=== PATIENT | male | born 1950 | race Caucasian/White ===

== ENCOUNTER 2023-11-15 09:54 | Emergency (ER) | payer MEDICARE, OTHER, SELFPAY ==
[2023-11-15 09:57] VITALS: BP 162/88
[2023-11-15 11:25] VITALS: BMI 23.1
--- NOTE | 2023-11-15 12:20 | ED.GENMED ---
History of Present Illness
<Lou Franklin PA-C - Last Filed: 11/16/23 17:09>
General
Chief Complaint: Fatigue
Source: patient
Exam Limitations: none
Time Seen by Provider: 11/15/23 11:43
Nursing documentation reviewed up to this point in time: agreed with
History of Present Illness
History of Present Illness:
Patient is a 73-year-old male presenting for evaluation of persistent fatigue over the past few days s/p fall about 9 days ago. 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
fall approximately 9 feet to the ground landing on his feet. He does state that he scraped/received him back to the left side of his body on the scaffolding on the way down. Patient denies any head strike or loss of consciousness. Fall was
unwitnessed. Patient was able to walk away from the fall and go home. He never sought medical attention at that time.
His was out of town at the time of the fall when she returned states that he seemed extremely fatigued. She also noticed some intermittent slurred speech and was concerned that it may be an impending stroke. She was concerned regarding the
extensive bruising to his left flank and left arm. She insisted that he come to the emergency department for evaluation.
Patient denies any headache, neck pain, back pain, nausea, vomiting, or visual changes. Patient denies any chest pain, shortness of breath, or abdominal pain. Patient has been ambulating without difficulty since the accident.
Patient does take a baby aspirin and Plavix daily. 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
Past History
<Lou Franklin PA-C - Last Filed: 11/16/23 17:09>
Past History
ED Past Medical History: CHF, COPD, CVA, GERD, HTN, Hypercholesterolemia, NIDDM and Valvular disease (Moderate aortic stenosis)
ED Past Surgical History: Orthopedic (Pelvic fracture)
Social History
Tobacco: Smoker (Quit smoking after most recent hospitalization August 13, 2020)
Alcohol: None
Drug: None
Personal:
Living: with family
Employment: Other
Family History
Family History: Other (Noncontributory)
Review of Systems
<Lou Franklin PA-C - Last Filed: 11/16/23 17:09>
Review of Systems
Allergies reviewed?: Yes
All Other Systems: ROS reviewed and negative except as documented in HPI and ROS
Phy Exam
<Lou Franklin PA-C - Last Filed: 11/16/23 17:09>
Physical Exam
Physical Exam:
Vitals: GCS 15. Hypertensive, otherwise vital signs stable. Afebrile
General: Patient is well appearing, no acute distress
Skin: Significant ecchymoses of left flank and left upper extremity.
Head: Normocephalic, atraumatic
Eyes: Sclera nonicteric. EOMs intact. No nystagmus. No evidence of orbital trauma
Throat: Protecting airway. Posterior pharynx clear
Neck: Normal ROM, no cervical spine tenderness, no meningismus
Cardiac: Regular rate and rhythm, no murmurs. No anterior chest wall tenderness.
Pulm: Normal respiratory effort. Clear breath sounds bilaterally. Tenderness to left lateral ribs. No crepitus.
Abdomen: Abdomen soft. Mild abdominal tenderness in left upper quadrant without rebound tenderness or guarding. Mild ecchymoses noted to left upper abdomen/flank area. No CVA tenderness.
Back: No cervical spine tenderness. No midline spinal tenderness. Significant ecchymoses of left flank extending around to the left upper abdomen.
Extremities: Significant ecchymoses to left upper extremity on medial aspect of upper arm extending down to wrist. Full range of motion in left upper extremity. Sensation fully intact, great distal pulses in left upper extremity. Right upper
extremity atraumatic and nontender. Bilateral lower extremities atraumatic and nontender full range of motion all joints. Great distal pulses in bilateral upper and lower extremities.
Neuro: AAOx3. CN II-XII intact. No focal neurologic deficits. Strength 5 out of 5 in upper and lower extremities. Normal finger-nose. Sensation fully intact. Speech fluid
Psychiatric: Normal affect.
Course
<Lou Franklin PA-C - Last Filed: 11/16/23 17:09>
Orders/Labs/Results
Orders:
Orders
11/15/23 10:00
Electrocardiogram (*1) Urgent
Reason for Study: Fatigue / Weakness
EKG- Treatment ONCE
11/15/23 12:17
CT Head W/o Iv Contrast Urgent
Comment:
Reason For Exam: Trauma, fell 9 feet, landed on feet
Cardiac Monitoring- Treatment ONCE
Tetanus/Diphth/Acelpertussis [Adacel] 0.5 ml IM .ONCE ONE
Forearm, Left 2 View [CR Forearm - Left 2 View] Urgent
Comment:
Reason For Exam: fall
Humerus, Left 2 Views [CR Humerus - Left Min 2 Views*] Urgent
Comment:
Reason For Exam: fall
11/15/23 12:18
CT Cervical Spine W/o Iv Contr Urgent
Comment:
Reason For Exam: Trauma, fell 9 feet, landed on feet
CT Chest/abd/pel W Iv Cont Urgent
Comment: echhymosis to left upper abdomen / ribs
Reason For Exam: Trauma, fell 9 feet, landed on feet
11/15/23 12:30
Type+Screen Urgent
Complete Blood Count/With Diff Urgent
Comprehensive Metabolic Panel Urgent
Abnormal Lab Results
11/15/23
12:30
MPV 10.5 H fL
(7.4-10.4)
Abs Immat Gran (auto) 0.1 H 10^3/uL
(0-0.05)
Absolute Neuts (auto) 6.6 H 10^3/uL
(1.4-6.5)
Immature Gran % 0.6 H %
(0-0.5)
Lymphocytes % 17.9 L %
(20.5-51.1)
Glucose 174 H mg/dl
(70-99)
11/15/23 12:30
11/15/23 12:30
Vital Signs
Initial and Last Documented VS:
Initial Vital Signs
Temp Pulse Resp BP Pulse Ox
99.0 F 102 16 162/88 98
11/15/23 09:57 11/15/23 09:57 11/15/23 09:57 11/15/23 09:57 11/15/23 09:57
Last Documented Vital Signs
Temp Pulse Resp BP Pulse Ox
99.0 F 73 19 125/70 97
11/15/23 09:57 11/15/23 14:45 11/15/23 14:45 11/15/23 16:23 11/15/23 14:45
<Néstor Clarke MD - Last Filed: 11/15/23 17:27>
Orders/Labs/Results
Orders:
Orders
11/15/23 10:00
Electrocardiogram (*1) Urgent
Reason for Study: Fatigue / Weakness
EKG- Treatment ONCE
11/15/23 12:17
CT Head W/o Iv Contrast Urgent
Comment:
Reason For Exam: Trauma, fell 9 feet, landed on feet
Cardiac Monitoring- Treatment ONCE
Tetanus/Diphth/Acelpertussis [Adacel] 0.5 ml IM .ONCE ONE
Forearm, Left 2 View [CR Forearm - Left 2 View] Urgent
Comment:
Reason For Exam: fall
Humerus, Left 2 Views [CR Humerus - Left Min 2 Views*] Urgent
Comment:
Reason For Exam: fall
11/15/23 12:18
CT Cervical Spine W/o Iv Contr Urgent
Comment:
Reason For Exam: Trauma, fell 9 feet, landed on feet
CT Chest/abd/pel W Iv Cont Urgent
Comment: echhymosis to left upper abdomen / ribs
Reason For Exam: Trauma, fell 9 feet, landed on feet
11/15/23 12:30
Type+Screen Urgent
Complete Blood Count/With Diff Urgent
Comprehensive Metabolic Panel Urgent
Abnormal Lab Results
11/15/23
12:30
MPV 10.5 H fL
(7.4-10.4)
Abs Immat Gran (auto) 0.1 H 10^3/uL
(0-0.05)
Absolute Neuts (auto) 6.6 H 10^3/uL
(1.4-6.5)
Immature Gran % 0.6 H %
(0-0.5)
Lymphocytes % 17.9 L %
(20.5-51.1)
Glucose 174 H mg/dl
(70-99)
11/15/23 12:30
11/15/23 12:30
Vital Signs
Initial and Last Documented VS:
Initial Vital Signs
Temp Pulse Resp BP Pulse Ox
99.0 F 102 16 162/88 98
11/15/23 09:57 11/15/23 09:57 11/15/23 09:57 11/15/23 09:57 11/15/23 09:57
Last Documented Vital Signs
Temp Pulse Resp BP Pulse Ox
99.0 F 73 19 125/70 97
11/15/23 09:57 11/15/23 14:45 11/15/23 14:45 11/15/23 16:23 11/15/23 14:45
<Lou Franklin PA-C - Last Filed: 11/16/23 17:09>
MDM/Problems Addressed
Differential Diagnosis Includes:
Not limited to: Contusion, rib fracture, pneumothorax, splenic laceration, humerus fracture, concussion, anemia
MDM/Problems Addressed:
Patient is 73-year-old male presenting for evaluation of persistent fatigue following traumatic fall 9 days prior. Patient did not seek medical attention after fall. He did fall through scaffolding 9 feet down landing on his feet. Patient's vital
signs are stable on arrival. Physical exam as above. Patient presents awake and alert with a GCS of 15. No focal neurologic deficits. He has no signs of head trauma. Cervical spine and midline spine nontender. He does have significant
ecchymoses to left medial arm and left flank. Tenderness palpation over left lateral ribs. Abdomen soft with very mild tenderness left upper quadrant. Lower extremities atraumatic and nontender with full range of motion. Labs were obtained which
show no clinically significant abnormalities. Hemoglobin is normal at 14 without any signs of anemia. CT head, cervical spine, chest/abdomen/pelvis were obtained which show no acute abnormalities. No evidence of fractured ribs. X-rays of both
left humerus and forearm were also obtained given significant level of ecchymoses. These showed no evidence of acute fracture or dislocation. Patient's pacemaker was interrogated although do not feel it is clinically relevant to patient's fall
given mechanism. There were a few runs of nonsustained ventricular tachycardia picked up over the past few days lasting a few seconds. These findings were discussed with cardiology further input. They recommend follow-up in office.
Patient remained stable in emergency department. In no distress. Stable for discharge with cardiology follow-up. Return precautions discussed at length.
Chronic conditions affecting care:
History of CVA on Plavix
Acute Exacerbation and/or Progression of Chronic Illness:
N/A
<Lou Franklin PA-C - Last Filed: 11/16/23 17:09>
*Radiology
Radiology exam reviewed: radiology read reviewed
*Pulse Oximetry
Patient hypoxic: no
*EKG
Interpreted by ED Provider?: Yes
EKG Intrepretation Date: 11/15/23
Interpretation: abnormal
Comparison EKG: changes noted
Heart Rate: 96
Rate: normal
Rhythm: ventricular paced
*Detail Supervisor Interpretation
Rate: normal
Interpretation: normal
Heart Rate: 72
Rhythm: sinus
*Critical Care Note
Total Time (30-74mins, 75-104mins- exclusive of procedures): Not Applicable
ED Attending Note
<Lou Franklin PA-C - Last Filed: 11/16/23 17:09>
-
Portions of this chart may have been created with voice recognition software.� Occasional wrong word or��sound alike� substitutions may have occurred due to the inherent limitations of voice recognition software.
<Néstor Clarke MD - Last Filed: 11/15/23 17:27>
ED Attending Note
Patient seen and examined by attending physician: Yes
ED Attending Note:
I have seen and evaluated the patient with a [id number] encounter. I have spoken to the advance practicer provider and involved in the medical history, the physical exam, medical decision making.
Evaluation and management service: agree unless noted differently below.
Results interpretation: agree unless noted differently below.
Focused HPI: 73-year-old male with a past medical history as documented presents to the emergency room for evaluation after a fall over a week ago. Patient reports that he was working on some scaffolding which was approximately 9 feet high. He
says that the scaffolding collapsed underneath him and he fell down and landed on his feet and fell to his bottom. He says he did not hit his head or lose consciousness. He says that he struck his left arm, chest on the scaffolding on the way
down. He has had pain in the left ribs since and significant bruising in the left ribs and abdomen. He has a large amount of bruising on the left arm. He says that he has been very fatigued since the fall. Came into the emergency room for
assessment. He is on Plavix. Denies other blood thinners.
Physical exam: Awake alert not in distress. GCS 15. Hypertensive and tachycardic in triage, vital signs normalized by my assessment. He has bruising in the left chest wall and tenderness in the left lateral ribs. He has some abdominal wall
bruising on the left but no abdominal tenderness. He has no tenderness in the cervical, thoracic, lumbar spine. He has no signs of trauma to the head. He has large amount of bruising in the medial aspect of the left upper arm and mild tenderness
in the medial upper arm; he has bruising on the left forearm but no tenderness in this area; he moves left shoulder, elbow, wrist through full active range of motion and a strong left radial pulse. Rest of extremities are atraumatic; able to
ambulate with no difficulty and no pain in the legs.
Medical Decision Making: Presents over a week removed from significant fall complaining of severe fatigue and left rib pain. Exam as above. Sent labs including a CBC and CMP, type and screen. Will check CT head, cervical spine,
chest/abdomen/pelvis. Will check x-ray of the left forearm and humerus. Check an EKG. Interrogate device. Reassess after the above.
Labs reviewed: CBC shows no anemia, CMP no clinically significant abnormalities. CT head, cervical spine, chest/abdomen/pelvis showed no acute posttraumatic injuries. X-ray of the left humerus and forearm negative for fracture. Device was
interrogated he did have a few episodes of NSVT�this was discussed with cardiology, they will follow-up in the office. He had no loss of consciousness during the episode and says that the scaffolding collapsed. Stable for discharge. Advised
Tylenol/Motrin as needed. Follow-up with PCP.
Discharge Plan
Departure
Patient Disposition: Home (Routine Discharge)
Date of Disposition: 11/15/23
Time of Disposition: 15:58
Patient with high blood pressure during this ER visit?: No
Condition: Good
Covid-19: Not Applicable
Discharge Problem:
Fall, Contusion of arm, left, Contusion of flank, Contusion of rib on left side
Instructions: Bruised Rib (DC), Contusion
Prescriptions:
No Action
ascorbic acid (vitamin C) [Vitamin C] 500 MG tablet
500 mg PO BID
fish oil-dha-epa 1 EACH capsule
1,200 mg PO DAILY
multivitamin with folic acid [Tab-A-Guillermo] 1 TABLET tablet
1 tab PO DAILY
acetaminophen [Tylenol Extra Strength] 500 MG tablet
1,000 mg PO Q4HPRN PRN (Reason: Pain)
cholecalciferol (vitamin D3) 1,000 UNITS tablet
1,000 units PO DAILY
carvedilol 6.25 MG tablet
6.25 mg PO BID 30 Days Qty: 60 0RF
glimepiride 2 MG tablet
4 mg PO BID@0800,1700 30 Days Qty: 120 0RF
atorvastatin 80 MG tablet
80 mg PO QPM 30 Days Qty: 30 0RF
clopidogrel 75 MG tablet
75 mg PO DAILY 30 Days Qty: 30 0RF
omeprazole 20 MG capsule,delayed release(DR/EC)
20 mg PO DAILY 30 Days Qty: 30 0RF
aspirin 81 MG tablet,chewable
81 mg PO DAILY 100 Days Qty: 100 0RF
fenofibrate nanocrystallized 145 mg Tablet
145 mg PO DAILY
ipratropium-albuterol 0.5 mg-3 mg(2.5 mg base)/3 mL Solution For Nebulization
3 ml INHALATION R Q6HPRN PRN (Reason: sob/wheezing)
albuterol sulfate 90 mcg/actuation Hfa Aerosol Inhaler
2 puff INHALATION R Q4HPRN PRN (Reason: sob/wheezing)
thiamine mononitrate (vit B1) 100 mg Tablet
100 mg PO DAILY
Farxiga 10 MG tablet
10 mg PO DAILY
metformin 1,000 MG tablet
1,000 mg PO BID@0800,1700 30 Days Qty: 60 0RF
Rx Instructions:
Resume on Tuesday 08/22.
furosemide 20 mg Tablet
20 mg PO DAILY Qty: 30 0RF
losartan 25 mg Tablet
25 mg PO DAILY Qty: 30 1RF
nicotine 21 mg/24 hr Patch 24 Hour
21 mg transdermal DAILY Qty: 14 0RF
diphenhydramine-acetaminophen [Tylenol PM Extra Strength] 25-500 mg Tablet
1 tab PO HSPRN PRN (Reason: SLEEP)
budesonide-formoterol [Symbicort] 80-4.5 mcg/actuation Hfa Aerosol Inhaler
1 inh INHALATION R BID
Referrals:
Douglas Villaseñor MD [Active] - Next open appointment
Carmelina Bautista DO [Family Provider] - Follow up in 5-7 days
Activity Restrictions/Additional Instructions:
RETURN TO THE EMERGENCY DEPARTMENT WITH ANY SEVERE HEADACHE/NECK PAIN, VISUAL CHANGES, SLURRED SPEECH, NUMBNESS/TINGLING IN LOWER EXTREMITIES, SIGNIFICANT WEAKNESS, INTRACTABLE NAUSEA/VOMITING, SEVERE ABDOMINAL PAIN, CHEST PAIN, SHORTNESS OF BREATH,
WORSENING IN CURRENT SYMPTOMS, OR ANY OTHER CONCERNS
-As discussed�your imaging performed in the emergency department shows no evidence of acute fractures or traumatic injuries. You likely suffered multiple contusions from your fall. You should continue to apply ice and take it easy over the next
few days. You should take Tylenol at home as needed for any discomfort.
-It is very important to monitor your symptoms closely and return to the emergency department any acute worsening or new symptoms. If you notice any blood in your urine or stool, coughing up blood you should return to the emergency department
promptly
-We are unsure the exact cause of your fatigue today. You should follow-up with your primary care provider for further evaluation/management.
-As discussed�there were small arrhythmias detected will be interrogated your pacemaker today. We did talk to the in flight refueling system repairer who recommends that you follow-up outpatient.
Interventions
Interventions:
*Risk Screen - Suicide Last Done: 11/15/23 11:11
*General Assessment Last Done: 11/15/23 11:11
*Neglect/Abuse Screening Last Done: 11/15/23 11:11
ED- Fall Risk Assessment Last Done: 11/15/23 11:11
*Nursing Disposition Last Done: 11/15/23 16:24
Discharge Date and Time
Discharge Date/Time: 11/15/23 16:25
Print Language: MALAY
[2023-11-15 12:46] LABS: % Basophils 0.6 % (0-2); % Eosinophils 4.9 % (0-6); % Immature Granulocytes 0.6 % (0-0.5); % Lymphocytes 17.9 % (20.5-51.1); % Monocytes 6.2 % (1.7-9.3); % Neutrophils 69.8 % (42.2-75.2); Absolute Basophils 0.1 10^3/uL (0-0.2); Absolute Eosinophils 0.5 10^3/uL (0-0.7); Absolute Immature Granulocytes 0.1 10^3/uL (0-0.05); Absolute Lymphocytes 1.7 10^3/uL (1.2-3.4); Absolute Monocytes 0.6 10^3/uL (0.1-0.6); Absolute Neutrophils 6.6 10^3/uL (1.4-6.5); Hematocrit 41.2 % (39.0-52.0); Mean Corpuscular Hgb 29.2 pg (27.0-31.0); Mean Platelet Volume 10.5 fL (7.4-10.4); Nucleated Red Blood Cells % 0 % (-); Platelet Count 314 10^3/uL (130-400); Red Blood Cell Count 4.79 10^6/uL (4.70-6.10); Red Cell Dist. Width 13.4 % (11.5-14.5); White Blood Cell Count 9.4 10^3/uL (4.8-10.8)
[2023-11-15 13:05] LABS: ALT (SGPT) 21 U/L (0-50); AST (SGOT) 26 U/L (17-59); Albumin 4.3 g/dl (3.5-5.0); Alkaline Phosphatase 59 U/L (38-126); Blood Urea Nitrogen 19 mg/dl (9-20); Carbon Dioxide 27 mmol/L (22-30); Chloride 101 mmol/L (98-107); Estimated Creatinine Clearance 100 ml/min; Glucose 174 mg/dl (70-99); Potassium 4.2 mmol/L (3.5-5.1); Sodium 136 mmol/L (135-145); Total Bilirubin 0.8 mg/dl (0.2-1.3); Total Protein 6.7 g/dl (6.3-8.2); eGFR > 60.00
[2023-11-15 13:14] VITALS: BP 130/66
[2023-11-15 14:10] VITALS: BP 129/70
[2023-11-15] MEDS: ADACEL 0.5 ML IM (14:12)
[2023-11-15 16:23] VITALS: BP 125/70
== END 2023-11-15 16:25 | disposition home or self-care (01) ==
LOC: EMR 09:54
PROVIDERS: Physician Assistant; EMERGENCY PHYSICIAN Emergency Medicine; FAMILY PHYSICIAN Family Medicine
DX: S40.022A Contusion of left upper arm, initial encounter (principal); S20.212A Contusion of left front wall of thorax, initial encounter; S30.1XXA Contusion of abdominal wall, initial encounter; W17.89XA Other fall from one level to another, initial encounter; Z95.0 Presence of cardiac pacemaker; Z23 Encounter for immunization; F17.200 Nicotine dependence, unspecified, uncomplicated
CPT/HCPCS: 70450; 71260; 72125; 73060; 73090; 74177; 80053; 85025; 86850; 86900; 86901; 90471; 90715; 93005; 93288; 99285; Q9967

== ENCOUNTER 2025-02-21 09:35 | Emergency (ER) | payer MEDICARE, OTHER, SELFPAY ==
[2025-02-21 09:37] VITALS: BP 108/70
--- NOTE | 2025-02-21 09:55 | EDRN ---
Reports takes [employer].
[2025-02-21] MEDS: ROXICODONE 5 MG PO (10:28)
[2025-02-21 11:16] VITALS: BMI 24.1
[2025-02-21 11:19] LABS: Hematocrit 40.7 % (39.0-52.0); Hemoglobin 13.9 g/dL (13.0-18.0); Mean Corp Hgb Conc. 34.2 g/dL (33.0-37.0); Mean Corpuscular Volume 86.6 fL (80.0-94.0); Nucleated Red Blood Cells % 0 % (-); Platelet Count 223 10^3/uL (130-400); Red Cell Dist. Width 13.5 % (11.5-14.5)
[2025-02-21 11:29] LABS: INR 1.29; PT 16.6 Sec (11.4-14.6)
[2025-02-21 11:30] LABS: APTT 29.5 Sec (23.4-35.0)
[2025-02-21 11:32] LABS: ALT (SGPT) 27 U/L (0-50); AST (SGOT) 25 U/L (17-59); Albumin 4.3 g/dl (3.5-5.0); Alkaline Phosphatase 68 U/L (38-126); Blood Urea Nitrogen 14 mg/dl (9-20); Calcium 9.8 mg/dl (8.4-10.2); Carbon Dioxide 26 mmol/L (22-30); Chloride 101 mmol/L (98-107); Estimated Creatinine Clearance 95 ml/min; Glucose 161 mg/dl (70-99); Potassium 4.1 mmol/L (3.5-5.1); Sodium 135 mmol/L (135-145); Total Protein 6.8 g/dl (6.3-8.2); eGFR > 60.00
--- NOTE | 2025-02-21 12:03 | ED.GENMED ---
History of Present Illness
<Johanna Matthews PA-C - Last Filed: 02/23/25 04:32>
General
Chief Complaint: Musculo-Skeletal Complaint
Time Seen by Provider: 02/21/25 09:52
History of Present Illness
History of Present Illness:
see MDM
Past History
<Johanna Matthews PA-C - Last Filed: 02/23/25 04:32>
Past History
ED Past Medical History: CHF, COPD, CVA, GERD, HTN, Hypercholesterolemia, NIDDM and Valvular disease (Moderate aortic stenosis)
ED Past Surgical History: Orthopedic (Pelvic fracture)
Social History
Tobacco: Smoker (Quit smoking after most recent hospitalization August 13, 2020)
Alcohol: None
Drug: None
Personal:
Living: with family
Employment: Other
Family History
Family History: Other (Noncontributory)
Phy Exam
<Johanna Matthews PA-C - Last Filed: 02/23/25 04:32>
Physical Exam
Physical Exam:
see MDM
Course
<HO Vallecillo Last Filed: 02/23/25 04:32>
Orders/Labs/Results
Orders:
Orders
02/21/25 10:22
Oxycodone [Roxicodone] 5 mg PO NOW STA
Femur, Left 2 View [CR Femur - Left Min 2 Vw] Urgent
Comment:
Reason For Exam: left leg pain/trauma/swelling
02/21/25 10:52
CT Lower Ext Angio W/wo Iv Con Urgent
Comment:
Reason For Exam: concern for active bleeding L thigh hematoma
02/21/25 11:12
Complete Blood Count/With Diff Urgent
Comprehensive Metabolic Panel Urgent
PTT Urgent
Prothrombin Time Urgent
02/21/25 14:12
Doxycycline [Vibramycin] 100 mg PO NOW STA
Abnormal Lab Results
02/21/25
11:12
WBC 17.3 H 10^3/uL
(4.8-10.8)
Abs Immat Gran (auto) 0.2 H 10^3/uL
(0-0.05)
Absolute Neuts (auto) 13.9 H 10^3/uL
(1.4-6.5)
Absolute Monos (auto) 1.2 H 10^3/uL
(0.1-0.6)
Immature Gran % 1.0 H %
(0-0.5)
Neutrophils % 80.3 H %
(42.2-75.2)
Lymphocytes % 8.3 L %
(20.5-51.1)
PT 16.6 H Sec
(11.4-14.6)
Glucose 161 H mg/dl
(70-99)
02/21/25 11:12
02/21/25 11:12
Vital Signs
Initial and Last Documented VS:
Initial Vital Signs
Temp Pulse Resp BP Pulse Ox
36.7 C 83 16 108/70 98
02/21/25 09:37 02/21/25 09:37 02/21/25 09:37 02/21/25 09:37 02/21/25 09:37
Last Documented Vital Signs
Temp Pulse Resp BP Pulse Ox
36.7 C 80 16 134/67 97
02/21/25 09:37 02/21/25 13:31 02/21/25 13:31 02/21/25 13:31 02/21/25 13:31
Kameronlt;Dion Nelson, DO - Last Filed: 02/21/25 12:12>
Orders/Labs/Results
Orders:
Orders
02/21/25 10:22
Oxycodone [Roxicodone] 5 mg PO NOW STA
Femur, Left 2 View [CR Femur - Left Min 2 Vw] Urgent
Comment:
Reason For Exam: left leg pain/trauma/swelling
02/21/25 10:52
CT Lower Ext Angio W/wo Iv Con Urgent
Comment:
Reason For Exam: concern for active bleeding L thigh hematoma
02/21/25 11:12
Complete Blood Count/With Diff Urgent
Comprehensive Metabolic Panel Urgent
PTT Urgent
Prothrombin Time Urgent
02/21/25 14:12
Doxycycline [Vibramycin] 100 mg PO NOW STA
Abnormal Lab Results
02/21/25
11:12
WBC 17.3 H 10^3/uL
(4.8-10.8)
Abs Immat Gran (auto) 0.2 H 10^3/uL
(0-0.05)
Absolute Neuts (auto) 13.9 H 10^3/uL
(1.4-6.5)
Absolute Monos (auto) 1.2 H 10^3/uL
(0.1-0.6)
Immature Gran % 1.0 H %
(0-0.5)
Neutrophils % 80.3 H %
(42.2-75.2)
Lymphocytes % 8.3 L %
(20.5-51.1)
PT 16.6 H Sec
(11.4-14.6)
Glucose 161 H mg/dl
(70-99)
02/21/25 11:12
02/21/25 11:12
Vital Signs
Initial and Last Documented VS:
Initial Vital Signs
Temp Pulse Resp BP Pulse Ox
36.7 C 83 16 108/70 98
02/21/25 09:37 02/21/25 09:37 02/21/25 09:37 02/21/25 09:37 02/21/25 09:37
Last Documented Vital Signs
Temp Pulse Resp BP Pulse Ox
36.7 C 80 16 134/67 97
02/21/25 09:37 02/21/25 13:31 02/21/25 13:31 02/21/25 13:31 02/21/25 13:31
<Johanna Matthews PA-C - Last Filed: 02/23/25 04:32>
MDM/Problems Addressed
Differential Diagnosis Includes:
see MDM
MDM/Problems Addressed:
Note:
CHIEF COMPLAINT(S)
Inability to ambulate and leg pain following recent trauma.
HISTORY OF PRESENT ILLNESS
The patient is a 74-year-old male with a relevant past medical history of mechanical valve replacement on [facility], who presented due to an inability to ambulate and increased pain in the left leg since yesterday. The onset of current symptoms began
a day prior to presentation, following engagement in light physical activity. The patient reports a significant exacerbation of pain and swelling in the left thigh, occurring suddenly without any new trauma on that day.
Three weeks prior, the patient experienced an initial trauma, having fallen approximately six feet from a ladder and landing on his back, which had resolved without medical intervention. Further exacerbating factors include an incident 10 days ago
involving a 200-pound tailgate that struck the patient when it was released, driving him backward but he did not fall, it did hit his left proximal thigh anteriorly.
He has had a little bit of swelling to this area and pain but was sore but nothing like
what began yesterday
Yesterday afternoon, while engaged in light walking activity at [employer], the patient reported a sudden inability to ambulate. He denies any immediate trauma at that time and was unable to exit the car unassisted afterward. The pain has been
described as severe and localized, with no numbness or neurological deficits, and the swelling is markedly prominent. The patient has experienced chronic mild numbness in the leg unrelated to the current episode. He denies any fever, chills, or
changes in bowel or bladder continence.
The patient is on anticoagulation therapy, specifically eliquis, due to his mechanical heart valve.
PAST MEDICAL AND SURIGICAL HISTORY
The patient has a history of a mechanical heart valve replacement. He also has a history of a pacemaker and experienced a stroke in 2019.
SOCIAL HISTORY
The patient consumes alcohol. He reports having ceased smoking and does not mention current drug use.
MEDICATIONS
The patient is currently on warfarin and aspirin due to his mechanical heart valve and prior stroke, respectively.
PHYSICAL EXAM
GENERAL: Alert , in no apparent distress
HEAD: NCAT
NECK: no midline tenderness, active ROM intact, no paraspinal muscle tenderness;
EYE: pupils equal and reactive, EOMs intact.
ENT: o/p clr, mmm. no hemotympanum
CARDIAC: Regular rate and rhythm, no edema
LUNGS: Clear breath sounds bilaterally, no acute respiratory distress, no wheezes/rales/rhonchi
ABDOMEN: Soft, without focal tenderness, no r/g, no cvat
NEUROLOGICAL: Alert and oriented, no focal neuro deficits, CN intact, 5/5 strength, sensation intact
SKIN: Warm and dry, no skin changes to the left anterior thigh
MUSCULOSKELETAL: Patient has a firm, tender, area of swelling to the left proximal lateral thigh that is approximately 20 x 10 cm, there is no overlying ecchymosis, the
PSYCH: Normal and appropriate interaction.
PROBLEM LIST
Acute Problems:
1. Sudden inability to ambulate with severe pain and swelling in the left thigh.
2. Possible hematoma or soft tissue injury secondary to trauma.
Chronic Problems:
1. Mechanical heart valve.
2. History of stroke in 2019.
PLAN
1. Initiate a computed tomography (CT) scan of the left leg to assess for possible active bleeding or other structural issues such as a femur fracture.
2. Establish intravenous access and administer pain control, potentially with oxycodone, after confirming no allergies to opioids.
3. Monitor for any signs of compartment syndrome or significant vascular injury.
4. Ensure communication with the patients regular sports administrator regarding any anticoagulation management modifications, pending diagnostic results.
5. Provide the patient with appropriate discharge instructions if diagnosed with a hematoma that can be managed conservatively.
DIFFERENTIAL DIAGNOSIS
The Differential Diagnosis includes, in no particular order and is not limited to:
1. Hematoma secondary to vascular injury
2. Femur fracture
3. Deep vein thrombosis
4. Compartment syndrome
5. Arterial insufficiency or occlusion
6. Muscular tear or strain
7. Sciatica with vascular complications
8. Peripheral nerve injury
9. Soft tissue infection
10. Exacerbation of anticoagulation-related bleeding due to eliquis therapy.
02/21/25 - 14:08
Patients recent scan indicates a hematoma in the muscle with no active bleeding, likely resulting from trauma rather than infection. Despite the elevated white blood cell count (18,000), which could suggest infection, it may also be attributed to
pain or inflammation. To err on the side of caution, initiation of antibiotics is warranted. Considering the patients difficulty ambulating and pain management needs, a stay in the hospital is recommended if pain becomes unmanageable or the patient
feels uncomfortable returning home. If discharged, the treatment plan includes oral antibiotics, warm compresses, and follow-up for worsening symptoms such as increased pain, fever, chills, skin redness, or swelling. A temporary hold on tonights
dose of Eliquis is advised, assuming past discontinuance for minor procedures has been safely done. Support with crutches will be provided. Pain management will be optimized with oxycodone and additional prescriptions as needed.
Patient strongly wishes to go home, he will use the crutches, pain was controlled with oxycodone
<Johanna Matthews PA-C - Last Filed: 02/23/25 04:32>
*Pulse Oximetry
SaO2: 98
Oxygen Mode of Delivery: Room air
Patient hypoxic: no (97)
*Critical Care Note
Total Time (30-74mins, 75-104mins- exclusive of procedures): Not Applicable
ED Attending Note
<ARAMIS Vallecillo-Brandon - Last Filed: 02/23/25 04:32>
-
Portions of this chart may have been created with voice recognition software.� Occasional wrong word or��sound alike� substitutions may have occurred due to the inherent limitations of voice recognition software.
<Dion Nelson DO - Last Filed: 02/21/25 12:12>
ED Attending Note
Patient seen and examined by attending physician: Yes
I performed the substantive portion of visit, reviewed & personally made and approve the management plan that is documented in note by myself or EAGLE.: Yes
ED Attending Note:
Seen with PA examined independently direct trauma to the left thigh is anticoagulated plain film noted will check CT to rule out active bleed
Discharge Plan
Departure
Patient Disposition: Home (Routine Discharge)
Date of Disposition: 02/21/25
Time of Disposition: 15:01
Patient with high blood pressure during this ER visit?: No
Condition: Fair
Covid-19: Not Applicable
Discharge Problem:
Hematoma
Instructions: Hematoma
Prescriptions:
New
doxycycline hyclate 100 mg capsule
100 mg PO BID Qty: 20 0RF
oxycodone 5 mg tablet
5 mg PO Q8H PRN (Reason: Pain) Qty: 12 0RF
No Action
ascorbic acid (vitamin C) [Vitamin C] 500 MG tablet
500 mg PO BID
fish oil-dha-epa 1 EACH capsule
1,200 mg PO DAILY
multivitamin with folic acid [Tab-A-Guillermo] 1 TABLET tablet
1 tab PO DAILY
acetaminophen [Tylenol Extra Strength] 500 MG tablet
1,000 mg PO Q4HPRN PRN (Reason: Pain)
cholecalciferol (vitamin D3) 1,000 UNITS tablet
1,000 units PO DAILY
carvedilol 6.25 MG tablet
6.25 mg PO BID 30 Days Qty: 60 0RF
glimepiride 2 MG tablet
4 mg PO BID@0800,1700 30 Days Qty: 120 0RF
atorvastatin 80 MG tablet
80 mg PO QPM 30 Days Qty: 30 0RF
clopidogrel 75 MG tablet
75 mg PO DAILY 30 Days Qty: 30 0RF
omeprazole 20 MG capsule,delayed release(DR/EC)
20 mg PO DAILY 30 Days Qty: 30 0RF
aspirin 81 MG tablet,chewable
81 mg PO DAILY 100 Days Qty: 100 0RF
fenofibrate nanocrystallized 145 mg Tablet
145 mg PO DAILY
ipratropium-albuterol 0.5 mg-3 mg(2.5 mg base)/3 mL Solution For Nebulization
3 ml INHALATION R Q6HPRN PRN (Reason: sob/wheezing)
albuterol sulfate 90 mcg/actuation Hfa Aerosol Inhaler
2 puff INHALATION R Q4HPRN PRN (Reason: sob/wheezing)
thiamine mononitrate (vit B1) 100 mg Tablet
100 mg PO DAILY
Farxiga 10 MG tablet
10 mg PO DAILY
metformin 1,000 MG tablet
1,000 mg PO BID@0800,1700 30 Days Qty: 60 0RF
Rx Instructions:
Resume on Tuesday 08/22.
furosemide 20 mg Tablet
20 mg PO DAILY Qty: 30 0RF
losartan 25 mg Tablet
25 mg PO DAILY Qty: 30 1RF
nicotine 21 mg/24 hr Patch 24 Hour
21 mg transdermal DAILY Qty: 14 0RF
diphenhydramine-acetaminophen [Tylenol PM Extra Strength] 25-500 mg Tablet
1 tab PO HSPRN PRN (Reason: SLEEP)
budesonide-formoterol [Symbicort] 80-4.5 mcg/actuation Hfa Aerosol Inhaler
1 inh INHALATION R BID
Referrals:
Kotz,Carmelina, DO [Family Provider, Family Practice] - Follow up in 5-7 days
Activity Restrictions/Additional Instructions:
YOUR SWELLING IN YOUR THIGH IS LIKELY A HEMATOMA
BUT THERE IS A SLIGHT POSSIBLILYT OF AN INFECTION
TAKE DOXYCYCLINE 100 MG TWICE A DAY FO R10 DAYS
WARM COMPRESSES OFF AND ON
USE THE CRUTCHES TO ASSIST WITH PARTIAL WEIGHT BEARING TO STAY OFF OF THE LEG TO ALLOW IT TO HEAL
STOP YOUR ELIQUIS FOR 1 DAY
RETURN FOR: SEVERE PAIN/WORSE PAIN, SWELLING ORQUIDEA TIS WORSENING, SKIN REDNESS, FEVER, WEKANESS, NUMBNESS IN THE LEG ETC
Oxycodone 1 tablet every 8 hours as needed for severe pain, you can take regular Tylenol 3 times a day as needed for mild pain or in addition to the oxycodone
While you are on oxycodone you need to take a stool softener to prevent constipation
Interventions
Interventions:
*Risk Screen - Suicide Last Done: 02/21/25 09:37
*General Assessment Last Done: 02/21/25 09:37
*Neglect/Abuse Screening Last Done: 02/21/25 09:37
*Nursing Disposition Last Done: 02/21/25 15:18
ED-Musculoskeletal Assessment Last Done: 02/21/25 09:52
Discharge Date and Time
Discharge Date/Time: 02/21/25 15:19
Print Language: KOREAN
[2025-02-21 13:31] VITALS: BP 134/67
[2025-02-21] MEDS: VIBRAMYCIN 100 MG PO (14:41)
== END 2025-02-21 15:19 | disposition home or self-care (01) ==
LOC: EMR 09:35
PROVIDERS: Physician Assistant; EMERGENCY PHYSICIAN Emergency Medicine; FAMILY PHYSICIAN Family Medicine
DX: S70.12XA Contusion of left thigh, initial encounter (principal); X58.XXXA Exposure to other specified factors, initial encounter; E11.9 Type 2 diabetes mellitus without complications; E78.00 Pure hypercholesterolemia, unspecified; I11.0 Hypertensive heart disease with heart failure; I50.9 Heart failure, unspecified; I35.0 Nonrheumatic aortic (valve) stenosis; J44.9 Chronic obstructive pulmonary disease, unspecified; Z79.01 Long term (current) use of anticoagulants; Z87.891 Personal history of nicotine dependence; Z86.73 Personal history of transient ischemic attack (TIA), and cerebral infarction without residual deficits; Z95.0 Presence of cardiac pacemaker; Z95.2 Presence of prosthetic heart valve
CPT/HCPCS: 99284; 73552; 73706; 80053; 85025; 85610; 85730; Q9967